=== PATIENT | male | born 1950 | race Caucasian/White ===

== ENCOUNTER 2025-01-19 09:04 | Outpatient (AMB) | payer MEDICARE, SELFPAY ==
--- NOTE | 2025-01-19 09:07 | A.OFFPC_ITS ---
Vital Signs 3 01/19/25 09:20 01/19/25 10:10 Height 5 ft 9 in Weight 268 lb 4 oz BMI 39.6 BP 132/72 Blood Pressure Location Lt brachial Position Sitting Respiration 12 Pulse 44 L 58 Pulse Source Pulse Oximeter Auscultation Temp 96.9 F Temp Source Oral Pulse Oximetry (%) 96 Oxygen Delivery Method Room Air Intake Visit Reasons: Est. Care / Physical Intake Note: New patient to establish care Cranberry Sorter Required: No Allergies No Known Allergies Allergy (Verified 01/19/25 09:39) Medication List - Last Reconciled 01/19/25 by Brina Weaver, COMMERCIAL ACCOUNTANT-BC cetirizine (Zyrtec) 10 mg PO DAILY PRN cyanocobalamin (vitamin B-12) 1,000 mcg PO DAILY metformin ER 500 mg PO DAILY rosuvastatin 20 mg PO BEDTIME valsartan 160 mg PO DAILY Tobacco use date assessed: 01/19/25 Fall risk assessment: No Falls in past year Last assessed Fall Risk: 01/19/25 Dental Screening Dental Screen Date: 01/19/25 Did you have a dental visit in the last 12 months?: No Did you have a dental problem in the last 6 months where you did not have access to dental care?: No Was dental information given to patient?: Patient has dentist HPI HPI Comments 2 History of Present Illness0 Details 74 y/o M with obesity, deviated nasal se ptum, elevated LFT, GERD, HLD, HTN, melanoma, prediabetes, family hx colon ca (Mom), leukocytosis, macrocytosis, sebhorreic dermatitis of scalp, PVC and PAC noted on EKGs SurgHx: s/p cataract surgery 2020, nasal deviation repair 2019 FHx: Mom colon ca, Bro oropharynx ca & [place], MGF stroke 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 New scabbed and bleeding area on back. - Previous basal cell carcinoma treated with excisions on the back. - Hypertension at goal on valsartan. - Prediabetes a1 c 5.3% on Metformin Intentional wt loss. - Hyperlipidemia on statin, due for labs . - Sustained Vitamin B12 supplementation has been prescribed for deficiency. Due for Tdap, willing to get today. Exam: awake alert NAD Irregular, bradycardic LS CTAB No edema ble, + pp, decreased Mood and affect appropriate Posterior trunk Anterior L chest Discussion We discussed the importance of regular follow-up to monitor existing conditions, particularly melanoma and basal cell carcinoma due to the risk of recurrence. I emphasized the importance of obtaining labs before the next appointment to assess blood counts and lipid levels. We reviewed the need for pneumococcal and Tdap vaccinations due to age and medical history, duly noting that the Tdap would be administered today, with consent obtained. The patient was encouraged to contact the splunk developer for any new or changing lesions. Follow-up was planned for a physical exam in a few weeks to discuss lab outcomes and develop a comprehensive care plan. Anticipatory guidance provided regarding pneumonia and protecting against recurrence of melanoma by minimizing sun exposure. A&P: 1. Melanoma and Basal Cell Carcinoma: Re commended continued vigilance with new skin lesions. Urged follow-up with dermatology for current concerns; continue regular dermatological evaluations. Will have note with pics faxed to [facility] to coordinate care. 2. Essential Hypertension: Blood pressur e under control. Maintain current therapy and monitor at regular appointments. 3. Prediabetes: Excellent glycemic contr ol on Metformin; continue current management and regular monitoring. 4. Hyperlipidemia: Pending lab results f rom today's visit; reinforce lipid- lowering strategies through medication and lifestyle. 5. Vitamin B12 Deficiency: Continue supp lementation; recheck levels with upcoming lab work. 6. Preventative Health: Administer Tdap vaccine today; pursue pneumococcal vaccination at nearby pharmacy. Otherwise UTD on vaccines RTO 2-3 weeks for sAWV and lab fu, sooner PRN Patient was informed and verbally consented to the use of an ambient scribe for clinic note documentation during this visit. Total time spent caring for the patient today was 42 minutes. This includes time spent before the visit reviewing the chart, time spent during the visit, and time spent after the visit on documentation, reviewing laboratory results, diagnostic imaging, medications, performing a medically necessary evaluation, counseling on diagnoses, care coordination, ordering appropriate tests, ordering appropriate medications, review of tests performed by other providers, reporting test results with the patient, communication with other healthcare providers. [facility] Medical History (Updated 01/19/25 @ 10:[address] [facility]) High cholesterol HTN (hypertension) No pertinent family history Sinusitis Surgical History (Updated 01/19/25 @ 09:27 by Taz Truong MA) No pertinent past surgical history Social History (Updated 01/19/25 @ 09:18 by Taz Truong MA) Household Members: Spouse Both parents involved: No Caregiver staying overnight: No Housing: Condominium Are you a primary animal care assistant to a significant other at home: Yes Do you presently have visiting nurse or other home services: No 75 years or older and lives alone: No Alcohol intake: current Alcohol intake frequency: a few times a week Patient Tobacco Use Status: Former Tobacco user Tobacco use type: Cigarette Cigarette Packs Per Day: 2 Years Smoked: 10 e-Cigarette/Vaping Use: Never Used Second Hand Smoke Exposure: No service: No Current occupational status: retired Cognitive needs: No Hearing needs: No Vision needs: No Questionnaire PHQ-9 Over the last 2 weeks, how often have you been bothered by any of the following problems? 1. Little interest or pleasure in doing things: not at all 2. Feeling down, depressed, or hopeless: not at all 3. Trouble falling or staying asleep, or sleeping too much: not at all 4. Feeling tired or having little energy: not at all 5. Poor appetite or overeating: not at all 6. Feeling bad about yourself - or that you are a failure or have let yourself or your family down: not at all 7. Trouble concentrating on things, such as reading the newspaper or watching television: not at all 8. Moving or speaking so slowly that other people could have noticed. Or the opposite - being so fidgety or restless that you have been moving around a lot more than usual: not at all 9. Thoughts that you would be better off or of hurting yourself in some way: not at all Total score: 0 Depression Screening Interpretation: Negative Depression Screening Done: Yes 71715 - PHQ-9 Billing: Yes Source: Developed by Drs. Deangelo Serna, Adenike Ashby, Wali Rascon and colleagues, with an educational linn from [employer]. Thrive Questionnaire Date Thrive assessed: 01/19/25 I am a: Patient What is your living situation today?: I have a steady place to live Within the past 12 months, did the food you bought not last and you didn't have the money to get more?: I choose not to answer this question Within the past 12 months, did you worry whether your food would run out before you got money to buy more?: I choose not to answer this question Do you have trouble paying for medicines?: No Do you have trouble getting transportation to medical appointments?: No Do you have trouble paying your heating and electricity bill?: No Do you have trouble taking care of your child, family member or friend?: No Do you have trouble with day-to-day activities such as bathing, preparing meals, shopping, managing finances, etc.?: No Are you currently unemployed and looking for a job?: No Are you interested in more education?: No Please select the resources that you would like help with: None Currently or been in a relationship where the following occur: No concerns reported THRIVE Score: 0 AUDIT C Alcohol Use Questionnaire (AUDIT-C) 1. How often do you have a drink containing alcohol?: 4 or more times a week 2. How many drinks containing alcohol do you have on a typical day when you are drinking?: 5 or 6 3. How often do you have six or more drinks on one occasion?: Monthly Total Score: 8 Score Reviewed/Action Taken: Yes SHANAE-7 AMB Questionnaire SHANAE-7 Date SHANAE - 7 assessed: 01/19/25 Feeling nervous, anxious, or on edge: 0 = Not at all Not being able to stop or control worryin = Not at all Worrying too much about different things: 0 = Not at all Trouble relaxin = Not at all Being so restless that it is hard to sit still: 0 = Not at all Becoming easily annoyed or irritable: 0 = Not at all Feeling afraid as if something awful might happen: 0 = Not at all Total SHANAE-7 score (0-4 normal; 5-9 mild; 10-14 moderate; 15-21 severe): 0 Source: Developed by Drs. Deangelo Serna, Adenike Ashby, Wali Rascon and colleagues, with an educational linn from [employer]. SHANAE-7 Assessment Billing SHANAE-7 Assessment Tool: SHANAE-7 Assessment 69014 Physical exam (Primary Care) Vital Signs: Last Vital Signs Temp 96.9 F 01/19/25 09:20 Pulse 44 L 01/19/25 09:20 Resp 12 01/19/25 09:20 BP 132/72 01/19/25 09:20 Pulse Ox 96 01/19/25 09:20 Oxygen Delivery Method Room Air 01/19/25 09:20 BMI result Body Mass Index 39.6 BMI Assessment/Plan discussion: High Tobacco/Smoking Status: Tobacco use Status Tobacco use date assessed 01/19/25 01/19/25 09:19 Patient Tobacco Use Status Former Tobacco user 01/19/25 09:19 Tobacco use type Cigarette 01/19/25 09:19 e-Cigarette/Vaping Use Never Used 01/19/25 09:19 PHQ-9: PHQ-9 Score PHQ-9: Total score 0 01/19/25 09:52 Depression Screening Interpretation: Negative Thrive Assessment: Date of Thrive Assessment Date Thrive assessed 01/19/25 01/19/25 09:12 Currently or been in a relationship where the following occur: No concerns reported Results AMB Hemoglobin A1c 2 AMB Hemoglobin A1c 5.3 % Last Edit by Taz Truong MA on 01/19/25 09:41 Immunizations Boostrix Tdap 2.5 Lf unit-8 mcg-5 Lf/0.5 mL intramuscular syringe Performing Provider[facility] Performing Location: [facility] Administered by: Mehnaz Herring RN on 01/19/25 10:06 2 Dose Route Admin Location Dispensed Lot Number Expiration Date [facility] Hot Roll Inspector 0.5 mL IM Right Deltoid 0.5 mL [id number] 08/24/25 [id number] Usetrace 2 VIS Given Date VIS Provided VIS Publication Date 01/19/25 Single Vaccine 21 Eligibility Eligibility Date Funding Source Not [facility] Eligible 01/19/25 Private Results Reviewed Results Reviewed: Laboratory Last Values Hgb A1c (Clinic) 5.3 % (4.0-6.0) 01/19/25 09:38 Coding Level of Care Code New Pt Level 4 (57920) Complex EM visit Add On G2211 Diagnoses Encounter to establish care Z76.89 Primary hypertension I10 Hypertension type: primary hypertension Mixed hyperlipidemia E78.2 Hyperlipidemia type: mixed hyperlipidemia Malignant melanoma of torso excluding breast C43.59 Melanoma location: torso excluding breast Need for Tdap vaccination Z23 BMI 39.0-39.9,adult Z68.39 Obesity (BMI 30-39.9) E66.9 Seasonal allergies J30.2 Prediabetes R73.03 Basal cell carcinoma (BCC) of skin of other part of torso C44.519 Basal cell carcinoma location: other part of trunk Additional Codes SHANAE-7 Assessment Billing - SHANAE-7 Assessment Tool: SHANAE-7 Assessment 29699 ([id number]) PHQ-9 - 72130 - PHQ-9 Billing: Yes ([id number]) Assessment & Plan Assessment & Plan (1) Encounter to establish care: Code(s): Z76.89 - Persons encountering health services in other specified circumstances (2) HTN (hypertension): Code(s): I10 - Essential (primary) hypertension Category: Medical Qualifiers: Hypertension type: primary hypertension Qualified Code(s): I10 - Essential (primary) hypertension (3) HLD (hyperlipidemia): Code(s): E78.5 - Hyperlipidemia, unspecified Category: Medical Qualifiers: Hyperlipidemia type: mixed hyperlipidemia Qualified Code(s): E78.2 - Mixed hyperlipidemia (4) Melanoma: Comment: [facility] Code(s): C43.9 - Malignant melanoma of skin, unspecified Category: Medical Qualifiers: Melanoma location: torso excluding breast Qualified Code(s): C43.59 - Malignant melanoma of other part of trunk (5) Need for Tdap vaccination: Code(s): Z23 - Encounter for immunization Category: Medical (6) BMI 39.0-39.9,adult: Code(s): Z68.39 - Body mass index [BMI] 39.0-39.9, adult Category: Medical (7) Obesity (BMI 30-39.9): Comment: with HTN and HLD Code(s): E66.9 - Obesity, unspecified Category: Medical (8) Seasonal allergies: Code(s): J30.2 - Other seasonal allergic rhinitis Category: Medical (9) Prediabetes: Code(s): R73.03 - Prediabetes Category: Medical (10) Basal cell carcinoma of skin: Code(s): C44.91 - Basal cell carcinoma of skin, unspecified Category: Medical Qualifiers: Basal cell carcinoma location: other part of trunk Qualified Code(s): C 44.519 - Basal cell carcinoma of skin of other part of trunk Plan . Orders: Orders 2 AMB Hemoglobin A1c Today Z13.9 - Encounter for screening, unspecified Lipid Panel Today C43.9 - Malignant melanoma of skin, unspecified, E78.5 - Hyperlipidemia, unspecified, I10 - Essential (primary) hypertension Vitamin D 25-OH Total Today C43.9 - Malignant melanoma of skin, unspecified, E78.5 - Hyperlipidemia, unspecified, I10 - Essential (primary) hypertension Complete Blood Count no Diff Today C43.9 - Malignant melanoma of skin, unspecified, E78.5 - Hyperlipidemia, unspecified, I10 - Essential (primary) hypertension Comprehensive Met. Panel Today C43.9 - Malignant melanoma of skin, unspecified, E78.5 - Hyperlipidemia, unspecified, I10 - Essential (primary) hypertension Microalbumin, Random (w Creat) Today C43.9 - Malignant melanoma of skin, unspecified, E78.5 - Hyperlipidemia, unspecified, I10 - Essential (primary) hypertension PSA, Ultra Sensitive Today C43.9 - Malignant melanoma of skin, unspecified, E78.5 - Hyperlipidemia, unspecified, I10 - Essential (primary) hypertension TSH reflex Free T4 Today C43.9 - Malignant melanoma of skin, unspecified, E78.5 - Hyperlipidemia, unspecified, I10 - Essential (primary) hypertension Vitamin B12 and Folate Today C43.9 - Malignant melanoma of skin, unspecified, E78.5 - Hyperlipidemia, unspecified, I10 - Essential (primary) hypertension TDaP Immunization Today Z23 - Encounter for immunization Medications: New 2 cyanocobalamin (vitamin B-12) 1,000 mcg PO DAILY 90 tabs 0RF metformin ER 500 mg PO DAILY 90 tabs 0RF rosuvastatin 20 mg PO BEDTIME 90 tabs 0RF valsartan 160 mg PO DAILY 90 tabs 0RF Boostrix Tdap (diphth,pertus(acell),tetanus) 0.5 mL IM ONCE 0.5 mL 0RF NS Z23 - Encounter for immunization Patient Instructions: - Schedule dermatology follow-up for evaluation of any concerning skin lesions. - Adhere to current medication regimen for blood pressure, diabetes, and cholesterol. - Obtain pneumococcal vaccine at a local pharmacy. - Minimize sun exposure to prevent skin damage and recurrence of melanoma. - Return for a follow-up physical exam and lab review in a few weeks. Walk-In Care (Urgent Care): We Make it Easy Walk-in for urgent medical issues such as: ? Seasonal Allergies ? Insect Bites ? Cough ? Diarrhea ? Acute Asthma Attacks ? Back, Knee or Joint Pain ? Ear Infection ? Fever without a Rash ? Headaches ? Nausea ? [place] Eye, Rash or Skin Irritation ? Sore Throat ? Sports Physicals ? Vomiting Most insurances are accepted. Patients do not need to be part of the [facility] to seek care at the walk-in clinic. Locations [address] [place] [address] , [place] [address] ? [phone] [facility] in [place] provides services to ages 18 and over. Open Saturday-Saturday: 8 a.m. to 5 p.m. and Saturday: 9 a.m. to 3 p.m.* *Hours may vary due to staffing availability. To confirm Walk-In Care hours in [place], please call [phone]. [address] [place] [address] ? [phone] [facility] in [place] provides services to ages 12 and over. Open Saturday-Saturday: 8 a.m. to 5 p.m. Hours may vary due to staffing availability. To confirm Walk-In Care hours in [place], please call [phone]. LABORATORY SERVICES: [facility] Lab ? Primary Location [address] [place] [address] Saturday through Saturday 6:00 AM ? 5:00 PM Saturday 7:00 AM ? 11:00 AM* [phone] The [facility] Lab is centrally located near the front entrance of the [facility] for easy outpatient access. Convenient parking is provided for outpatients. *Hours may vary due to staffing availability. To confirm Laboratory hours for any location, please call [phone]. Offsite Location For your convenience, we offer offsite laboratory draw stations at the following locations: [address] [facility], [place] [address] [facility], [address], [place] Saturday through Saturday 7:30 AM ? 1:00 PM* [phone] *Hours may vary due to staffing availability. To confirm Laboratory hours for any location, please call [phone]. [place] ? [address] [facility], [place] Saturday through Saturday 6:00 AM ? 3:30 PM* Saturday 6:30 AM ? 3 PM* [phone] *Hours may vary due to staffing availability. To confirm Laboratory hours for any location, please call [phone]. [address] [facility] Saturday through Saturday 7:30 AM ? 4:00 PM* [phone] *Hours may vary due to staffing availability. To confirm Laboratory hours for any location, please call [phone] [place] [address] Saturday through 9:00 AM ? 4:00 PM* *Hours may vary due to staffing availability. To confirm Laboratory hours for any location, please call [phone]. Appointments are not necessary. Walk-ins are welcome. Like all the departments throughout the [facility], our Lab undergoes frequent reviews to ensure the quality and accuracy of test results, and our staff takes special pride in its status as a nationally accredited facility. Patient Portal: ONE PATIENT. ONE RECORD. BETTER CARE. [facility] has a fully integrated, cutting- edge mobile electronic health information system that has revolutionized the way we care for our patients and manage our organization. This system improves communication and coordination enabling us to provide safe, higher-quality care, and an overall positive experience for staff and patients. Our first priority, as always, is to deliver the highest quality care possible. The system is running in the background supporting that priority. This portal is for all [facility] services and practices. If you are experiencing any technical difficulties with enrolling or logging into the Patient Portal please complete the [facility] Patient Portal Technical Support Form. [facility] now offers a new secure on-line interactive tool for patients to review their health information ? ?Patient Portal. This interactive web portal will enable patients and their families to take an active role in their care by providing easy, secure access to their health information via the internet. The Patient Portal provides patients with instant access to their health information, including laboratory results, medications, allergies, demographic information, visit history, and more. In addition to managing their own care, parents and health care proxies with authorized consent will appreciate the ability to access the records of those individuals for whom they provide care. Please note: if you wish to gain access (Proxy) to another patient?s portal, you will be required to come to the Medical Records Department in person at [facility]. Both the patient giving proxy access and the proxy will need to provide photo identification and complete the appropriate authorization. The Patient Portal also allows track their appointments online. The [facility] Patient Portal also saves patients time by allowing them to submit updates to their demographic and contact information prior to their visits. Portal email notifications will also alert patients to any new activity on their portal, such as test results and new appointments. In order to initially enroll in the [facility] Patient Portal, you will need to enter some required information including the following: * your [facility] Medical Record number * your personal home email address * name * date of Please note: In order to enroll in the [facility] Patient Portal, we need to have your email address on file in your electronic medical record. ?The email address needs to be specific for one person (yourself) in order for your Portal enrollment to be successful. ?You can update your email address in person with our Registration staff when you are registering for a hospital visit. ?Otherwise, you will need to come to the Health Information Management (Medical Records) Department at [facility]. ?We are open from Saturday ? Saturday from 7:30 a.m. ? 4:30 p.m. ?You will be required to present a photo id. Once you have successfully enrolled in the Patient Portal, you will receive a one-time user id and password for the Portal, sent to your email address. ?This will allow you to log into the Patient Portal within 99 hrs and reset your own logon id and password, and define personal security questions. ?Once your permanent login and password have been set, you can log into the [facility] Patient Portal at any time via the blue button above or from the Portal Logon button on any page of the [facility] website. [facility] encourage all of our patients to enroll in Patient Portal as it presents a valuable opportunity for patients and their families to actively participate in their care and stay healthy Welcome to [facility]. ?We look forward to working with you.
[2025-01-19 09:20] VITALS: BP 132/72; PULSE 44; RESP 12; TEMP 36.1; O2SAT 96; BMI 39.6
[2025-01-19 10:10] VITALS: PULSE 58
== END 2025-01-19 10:06 | disposition home or self-care (01) ==
LOC: HO.HMCFM 09:05
PROVIDERS: PCP Nurse Practitioner Family; Visit Provider Nurse Practitioner Family
DX: Z76.89 Persons encountering health services in other specified circumstances (principal); I10 Essential (primary) hypertension; E78.2 Mixed hyperlipidemia; C43.59 Malignant melanoma of other part of trunk; Z23 Encounter for immunization; Z68.39 Body mass index [BMI] 39.0-39.9, adult; E66.9 Obesity, unspecified; J30.2 Other seasonal allergic rhinitis; R73.03 Prediabetes; C44.519 Basal cell carcinoma of skin of other part of trunk; Z13.9 Encounter for screening, unspecified

== ENCOUNTER 2025-01-19 10:17 | Outpatient (REF) | payer MEDICARE, SELFPAY ==
[2025-01-19 14:25] LABS: Hematocrit 41.2 % (42.0-52.0); Hemoglobin 14.2 g/dl (14.0-18.0); Mean Corpuscular HGB Conc 34.5 g/dl (31.0-36.0); Mean Corpuscular Hemoglobin 33.9 pg (27.0-33.0); Mean Corpuscular Volume 98.3 fL (80.0-98.0); Mean Platelet Volume 11.2 fL (9.4-12.4); Platelet Count 199 X10*3/uL (160-400); Red Blood Count 4.19 X10*6/uL (4.60-5.80); Red Cell Distribution Width 13.8 % (11.0-16.0); White Blood Count 7.6 X10*3/uL (4.8-10.8)
[2025-01-19 14:48] LABS: Alanine Aminotransferase 23 U/L (0-40); Albumin Level 4.2 g/dL (3.5-5.0); Alkaline Phosphatase 55 U/L (39-117); Anion Gap 11 (12-20); Aspartate Amino Transferase 30 U/L (5-37); Bilirubin Total 0.8 mg/dL (0.0-1.0); Blood Urea Nitrogen 15 mg/dL (9-16); Calcium 9.4 mg/dL (8.4-10.2); Carbon Dioxide 26 mmol/L (22-29); Chloride 106 mmol/L (96-108); Cholesterol 138 mg/dL (<200); Estimated Glomerular Filt Rate > 60; Glucose Random 95 mg/dL (60-115); HDL Cholesterol 41 mg/dL (>40); LDL Cholesterol Calculated 73 mg/dL (<100); Potassium 4.1 mmol/L (3.3-5.1); Sodium 139 mmol/L (135-145); Total Protein 6.9 g/dL (6.5-8.0); Triglycerides 122 mg/dL (<150)
[2025-01-19 15:05] LABS: TSH reflex Free T4 2.73 uIU/mL (0.32-4.0)
[2025-01-19 15:08] LABS: Creatinine Urine 213.11 mg/dL; Microalbum/Creatinine Ratio Ur 4.6 ug/mg cr (<30)
[2025-01-19 15:15] LABS: Vitamin B12 972 pg/mL (200-900)
[2025-01-24 16:29] LABS: PSA, Ultra Sensitive 0.98 ng/mL
== END 2025-01-19 10:18 | disposition home or self-care (01) ==
LOC: HO.WFDLDS 10:17
PROVIDERS: Visit Provider Nurse Practitioner Family
DX: C43.9 Malignant melanoma of skin, unspecified (principal); E78.5 Hyperlipidemia, unspecified; I10 Essential (primary) hypertension; Z23 Encounter for immunization; Z13.9 Encounter for screening, unspecified; Z12.5 Encounter for screening for malignant neoplasm of prostate; Z13.1 Encounter for screening for diabetes mellitus
CPT/HCPCS: 36415; 80053; 80061; 82043; 82306; 82570; 82607; 82746; 83036; 84153; 84443; 85027; 90471; 90715; 96127; 99202

== ENCOUNTER 2025-02-10 07:29 | Outpatient (AMB) | payer MEDICARE, SELFPAY ==
--- NOTE | 2025-02-10 07:36 | A.OFFVIS_ITS ---
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 The Medicare Annual Wellness Visit (AWV) is a yearly appointment with a health professional to identify health risks and help reduce them and to create or update a personalized prevention plan. During a Medicare AWV, health professionals should also review any current opioid prescriptions, detect any cognitive impairment, and establish or update medical and family history. 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 Colon: 2023 @ [facility], polyps repeat in 3 years Vaccines: Flu UTD, Tdap 12/2024, Shingles UTD, PCV to be done at pharmacy AAA screen: NA EKG: done today, PVC and PAC 1st degree heart block [place] of Care: GI [facility] next visit March 2025 [place] [facility] Visual Acuity: reading glasses; vision screen done today Hearing Screening: has not had it checked in a while, wouldnt mind getting audio testing ACP: has HCP at home, and dtr, has living will ok to resus but does not want prolonged life sustaining efforts Dietary/Nutrition/Exercise Edu provided: Y Results Labs 01/19/25 Mild anemia , Vit D 26, otherwise labs wnl PSA WNL During the course of the visit the patient was educated and counseled about appropriate screening and preventative services. Patient instructions were provided to the patient in written or electronic format. I have reviewed and verified the above information. Since last office visit: Did see derm since last visit and plans to have the areas below removed. Taking all meds as directed. Offers no new complaints. LDL at goal on statin. B12 normal on supplement BP WNL on meds A1c stable on Metformin Exam: General: Well developed, well nourished, in no acute distress. Appears stated age. Head: Normocephalic, atraumatic. Eyes: Pupils are equal, round and reactive to light and accommodation. Conjunctivae are clear. Vision grossly normal. Ears: TMs clear AU, EACS WNL Nose: Patent, without discharge. Mouth: There are no ulcers or lesions noted. No inflammation, no post nasal drip, no plaques nor exudates. Neck: Supple, no adenopathy or thyromegaly. Lungs: Clear to auscultation bilaterally. No rales, rhonchi or wheeze noted. Good air flow in all castrejno. Heart: Irregular, bradycardic, No murmurs, click, rubs or gallops are noted. Abdomen: Bowel sounds present in all quadrants. The abdomen is soft, nontender, with no masses or organomegaly noted. No hernias are noted. Musculoskeletal: Joints are nontender, without swelling, redness, or effusions. Range of motion is observed to be normal. Pulses: Peripheral pulses are equal and palpable bilaterally - decreased Extremities: No edema ble, + pp, decreased, hairless, + spider veins Neurologic: Gait and station normal. Cranial Nerves 2-12 intact. Motor strength grossly symmetrical and intact. No sensory loss. Balance normal. Skin: See below. Psych: Normal eye contact, affect and mood appropriate, and normal interactions. Patient is alert and appropriate to context. Posterior trunk Anterior L chest A&P: 1. Melanoma and Basal Cell Carcinoma: Re commended continued vigilance with new skin lesions. Urged follow-up with dermatology for current concerns; continue regular dermatological evaluations 2. Essential Hypertension: Blood pressur e under control. Maintain current therapy and monitor at regular appointments. 3. Prediabetes: Excellent glycemic contr ol on Metformin; continue current management and regular monitoring. 4. Hyperlipidemia: Pending lab results f rom today's visit; reinforce lipid- lowering strategies through medication and lifestyle. 5. Vitamin B12 Deficiency: Continue supp lementation; recheck levels with upcoming lab work. 6. Preventative Health: pursue pneumococ joselito vaccination at nearby pharmacy. Otherwise UTD on vaccines 7. Vit D def: start MVI OTC (mens 50+) Plan RTO 6 months with repeat labs 1 week before for routine chronic dz mgmt, sooner PRN An additional 30 minutes was spent addressing the problem(s) noted at todays visit. This includes time spent before the visit reviewing the chart, time spent during the visit, and time spent after the visit on documentation reviewing laboratory results, diagnostic imaging, medications, performing a medically necessary evaluation, counseling on diagnoses, care coordination, ordering appropriate tests, ordering appropriate medications, review of tests performed by other providers, reporting test results with the patient, communication with other healthcare providers. 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 healthcare to a significant other at home: Yes Do you presently have visiting nurse or other home services: No 75 years or older and lives alone: No Alcohol intake: current Alcohol intake frequency: a few times a week Patient Tobacco Use Status: Former Tobacco user Tobacco use type: Cigarette Cigarette Packs Per Day: 2 Years Smoked: 10 e-Cigarette/Vaping Use: Never Used Second Hand Smoke Exposure: No service: No Current occupational status: retired Cognitive needs: No Hearing needs: No Vision needs: No Questionnaire Medicare Wellness Checkup What [age] your [age]?: [age] What gender do you identify with?: male During the past 4 weeks, how much have you been bothered by emotional problems such as feeling anxious, depressed, irritable, sad or downhearted, and blue?: n ot at all During the past 4 weeks, has your physical & emotional health limited your social activities with family, friends, neighbors, or groups?: not at all During the past 4 weeks, how much bodily pain have you generally had?: very mild pain During the past 4 weeks, was someone available to help you if you needed & wanted help?: yes, as much as I wanted During the past 4 weeks, what was the hardest physical activity you could do for at least 2 minutes?: heavy Can you get to places out of walking distance without help? (For eg., can you travel alone on buses, taxis or drive your car?): Yes Can you go shopping for groceries or clothes without someone's help?: Yes Can you prepare your own meals?: Yes Can you do your housework without help?: Yes Because of any health problems, do you need the help of another person with your personal care needs such as eating, bathing, dressing or getting around the house?: No Can you handle your own money without help?: Yes During the past 4 weeks, how would you rate your health in general?: good During the past 4 weeks how have things been going for you?: pretty well Are you having difficulties driving your car?: no Do you always fasten your seat belt when you are in a car?: yes, usually During past 4 weeks, have you been bothered by the following: never: Falling or dizzy when standing up, Sexual problems?, Trouble eating well?, Teeth or denture problems?, Problems using the telephone? and Tiredness or fatigue? Have you fallen 2 or more times in the past year?: No Are you afraid of falling?: No Are you a smoker?: no During the past 4 weeks, how many drinks of wine, beer, or other alcoholic beverages did you have?: 2-5 drinks per week Do you exercise for about 20 minutes 3 or more times a week?: no, I usually do not exercise this much Have you been given information to help with the following?: no: Hazards in your house that might hurt you? and no: Keeping track of your medications? How often do you have trouble taking medicines the way you have been told to take them?: I always take medicine as prescribed How confident are you that you can control & manage most of your health problems?: very confident What is your race?: White Activity of Daily Living Bathing - sponge bath, tub bath or shower: receives no assistance (gets in/out by self, if usual bathing means Dressing - getting clothes from closets & drawers, including inner/outer garments & fasteners.: gets clothes & gets completely dressed without help Toileting - going to the 'toilet room' for urine/bowel elimination & cleaning self/arranging clothes: goes to toilet room, cleans self, arranges clothes without help Transfer: moves in & out of bed and chair without help (may use support object) Continence: controls urination/bowel movements completely by self Feeding: feeds self without help Total Score: 0 Information obtained from: patient Using telephone: independent Traveling: independent Shopping: independent Preparing meals: independent Housework: independent Taking medicine: independent Managing money: independent PHQ-9 Over the last 2 weeks, how often have you been bothered by any of the following problems? 1. Little interest or pleasure in doing things: not at all 2. Feeling down, depressed, or hopeless: not at all 3. Trouble falling or staying asleep, or sleeping too much: not at all 4. Feeling tired or having little energy: not at all 5. Poor appetite or overeating: not at all 6. Feeling bad about yourself - or that you are a failure or have let yourself or your family down: not at all 7. Trouble concentrating on things, such as reading the newspaper or watching television: not at all 8. Moving or speaking so slowly that other people could have noticed. Or the opposite - being so fidgety or restless that you have been moving around a lot more than usual: not at all 9. Thoughts that you would be better off or of hurting yourself in some way: not at all Total score: 0 Depression Screening Interpretation: Negative Depression Screening Done: Yes 60304 - PHQ-9 Billing: Yes Source: Developed by Drs. Deangelo Serna, Adenike Ashby, Wali Rascon and colleagues, with an educational linn from [employer]. Physical Exam Vital Signs: Last Vital Signs Temp 97.5 F 04/16/25 08:05 Pulse 69 02/10/25 08:05 Resp 12 02/10/25 08:05 BP 124/72 02/10/25 08:05 Pulse Ox 97 02/10/25 08:05 Oxygen Delivery Method Room Air 02/10/25 08:05 BMI result Body Mass Index 39.6 Office Procedures EKG [id number], Complete Vision Screening Right Eye: 20/20 Left Eye: 20/25 Bilateral: 20/25 Color: Pass 75970 - Vision Screening Assessment & Plan Assessment & Plan (1) Encounter for subsequent annual wellness visit (AWV) in Medicare patient: Onset Date: ~01/2025 Code(s): Z00.00 - Encounter for general adult medical examination without abnormal findings (2) ACP (advance care planning): Code(s): Z71.89 - Other specified counseling (3) Vitamin D deficiency: Comment: start daily MVI Code(s): E55.9 - Vitamin D deficiency, unspecified (4) HTN (hypertension): Code(s): I10 - Essential (primary) hypertension Qualifiers: Hypertension type: primary hypertension Qualified Code(s): I10 - Essential (primary) hypertension (5) HLD (hyperlipidemia): Code(s): E78.5 - Hyperlipidemia, unspecified Qualifiers: Hyperlipidemia type: mixed hyperlipidemia Qualified Code(s): E78.2 - Mixed hyperlipidemia (6) Obesity (BMI 30-39.9): Comment: with HTN and HLD Code(s): E66.9 - Obesity, unspecified (7) Prediabetes: Code(s): R73.03 - Prediabetes (8) B12 deficiency anemia: Code(s): D51.9 - Vitamin B12 deficiency anemia, unspecified Qualifiers: Vitamin B12 deficiency anemia type: other B12 deficiency Qualified Code(s): D51.8 - Other vitamin B12 deficiency anemias Plan . Orders: Orders 2 Complete Blood Count no Diff 6 Months D51.9 - Vitamin B12 deficiency anemia, unspecified, E66.9 - Obesity, unspecified, E78.2 - Mixed hyperlipidemia, I10 - Essential (primary) hypertension, R73.03 - Prediabetes Comprehensive Met. Panel 6 Months D51.9 - Vitamin B12 deficiency anemia, unspecified, E66.9 - Obesity, unspecified, E78.2 - Mixed hyperlipidemia, I10 - Essential (primary) hypertension, R73.03 - Prediabetes IRON PROFILE 6 Months D51.9 - Vitamin B12 deficiency anemia, unspecified, E66.9 - Obesity, unspecified, E78.2 - Mixed hyperlipidemia, I10 - Essential (primary) hypertension, R73.03 - Prediabetes Vitamin B12 and Folate 6 Months D51.9 - Vitamin B12 deficiency anemia, unspecified, E66.9 - Obesity, unspecified, E78.2 - Mixed hyperlipidemia, I10 - Essential (primary) hypertension, R73.03 - Prediabetes Vitamin D 25-OH Total 6 Months D51.9 - Vitamin B12 deficiency anemia, unspecified, E66.9 - Obesity, unspecified, E78.2 - Mixed hyperlipidemia, I10 - Essential (primary) hypertension, R73.03 - Prediabetes Hemoglobin A1c 6 Months D51.9 - Vitamin B12 deficiency anemia, unspecified, E66.9 - Obesity, unspecified, E78.2 - Mixed hyperlipidemia, I10 - Essential (primary) hypertension, R73.03 - Prediabetes Lipid Panel 6 Months D51.9 - Vitamin B12 deficiency anemia, unspecified, E66.9 - Obesity, unspecified, E78.2 - Mixed hyperlipidemia, I10 - Essential (primary) hypertension, R73.03 - Prediabetes Ferritin 6 Months D51.9 - Vitamin B12 deficiency anemia, unspecified, E66.9 - Obesity, unspecified, E78.2 - Mixed hyperlipidemia, I10 - Essential (primary) hypertension, R73.03 - Prediabetes Referrals 2 Audiology Referral H91.90 - Unspecified hearing loss, unspecified ear Medications: New 2 multivitamin 1 tab PO DAILY 90 tabs 0RF Patient Instructions: Health screenings for men You should visit your health care provider regularly, even if you feel healthy. The purpose of these visits is to: Screen for medical issues Assess your risk for future medical problems Encourage a healthy lifestyle Update vaccinations and other preventive care services Help you get to know your provider in case of an illness Information Even if you feel fine, you should still see your provider for regular checkups. These visits can help you avoid problems in the future. For example, the only way to find out if you have high blood pressure is to have it checked regularly. High blood sugar and high cholesterol level also may not have any symptoms in the early stages. Simple blood tests can check for these conditions. There are specific times when you should see your provider or receive specific health screenings. The [place] Preventive Services Task Force publishes a list of recommended screenings. Below are screening guidelines for men ages 40 to 64. BLOOD PRESSURE SCREENING Have your blood pressure checked at least once every year. Watch for blood pressure screenings in your area. Ask your provider if you can stop in to have your blood pressure checked. Ask your provider if you need your blood pressure checked more often if: You have diabetes, heart disease, kidney problems, or are overweight or have certain other health conditions You have a first-degree relative with high blood pressure You are Black Your blood pressure top number is from 120 to 129 mm Hg, or the bottom number is from 70 to 79 mm Hg If the top number is 130 mm Hg or greater or the bottom number is 80 mm Hg or greater, this is considered stage 1 hypertension. Schedule an appointment with your provider to learn how you can lower your blood pressure. Effects of age on blood pressure CHOLESTEROL SCREENING Cholesterol screening should begin at age 35 for men with no known risk factors for coronary heart disease. Repeat cholesterol screening should take place: Every 5 years for men with normal cholesterol levels More often if changes occur in lifestyle (including weight gain and diet) More often if you have diabetes, heart disease, kidney problems, or certain other conditions COLORECTAL CANCER SCREENING If you are under age 45, talk to your provider about getting screened. You may need to be screened if you have a strong family history of colon cancer or polyps. Screening may also be considered if you have risk factors such as a history of inflammatory bowel disease or polyps. If you are age 45 to 75, you should be screened for colorectal cancer. There are several screening tests available: A stool-based fecal occult blood (gFOBT) or fecal immunochemical test (FIT) every year A stool sDNA test every 1 to 3 years Flexible sigmoidoscopy every 5 years or every 10 years with stool testing FIT done every year CT colonography (virtual colonoscopy) every 5 years Colonoscopy every 10 years You may need a colonoscopy more often if you have risk factors for colorectal cancer, such as: Ulcerative colitis A personal or family history of colorectal cancer A history of growths in your colon called adenomatous polyps DENTAL EXAM Go to the dentist once or twice every year for an exam and cleaning. Your dentist will evaluate if you have a need for more frequent visits. DIABETES SCREENING All adults who do not have risk factors for diabetes should be screened starting at age 35 and repeated every 3 years. If you have other risk factors for diabetes, such as a first degree relative with diabetes, overweight or obesity, high blood pressure, prediabetes, or a history of heart disease, you may be tested more often. If you are overweight and have other risk factors, such as high blood pressure and are planning to become , screening is recommended. EYE EXAM Have an eye exam every 2 to 4 years ages 40 to 54 and every 1 to 3 years ages 55 to 64. Your provider may recommend more frequent eye exams if you have vision problems or glaucoma risk. Have an eye exam that includes an examination of your retina (back of your eye) at least every year if you have diabetes. IMMUNIZATIONS Commonly needed vaccines include: Flu shot: get one every year COVID-19 vaccine: ask your provider what is best for you Tetanus-diphtheria and acellular pertussis (Tdap) vaccine: have as one of your tetanus-diphtheria vaccines if you did not receive it as an adolescent Tetanus-diphtheria: have a booster (or Tdap) every 10 years Varicella vaccine: receive 2 doses if you never had chickenpox or the varicella vaccine and were born in 1979 or after Hepatitis B vaccine: receive 2, 3, or 4 doses, depending on your exact circumstances, if you did not receive these as a child or adolescent, until age 59 Shingles (herpes zoster) vaccine: at or after age 50 Ask your provider if you should receive other immunizations, especially if you have certain medical conditions, such as diabetes or are at increased risk for some diseases such as pneumonia. INFECTIOUS DISEASE SCREENING Screening for hepatitis C: all adults ages 18 to 79 should get a one-time test for hepatitis C. Screening for human immunodeficiency virus (HIV): all people ages 15 to 65 should get a one-time test for HIV. Depending on your lifestyle and medical history, you may need to be screened for infections such as syphilis, chlamydia, and other infections. LUNG CANCER SCREENING You should have an annual screening for lung cancer with low-dose computed tomography (LDCT) if: You are age 50 to 80 years AND You have a 20 pack-year smoking history AND You currently smoke or have quit within the past 15 years OSTEOPOROSIS SCREENING If you are age 50 to 64 and have risk factors for osteoporosis, you should discuss screening with your provider. Risk factors can include long-term steroid use, low body weight, smoking, heavy alcohol use, having a fracture after age 50, or a family history of hip fracture or osteoporosis. Osteoporosis PHYSICAL EXAM All adults should visit their provider from time to time, even if they are healthy. The purpose of these visits is to: Screen for diseases Assess risk of future medical problems Encourage a healthy lifestyle Update vaccinations and other preventive care services Maintain a relationship with a provider in case of an illness Your height, weight, and body mass index (BMI) should be checked at every exam. During your exam, your provider may ask you about: Depression and anxiety Diet and exercise Alcohol and tobacco use Safety, such as use of seat belts and smoke detectors Your medicines and risk for interactions PROSTATE CANCER SCREENING If you're 55 through 69 years old, before having the test, talk to your provider about the pros and cons of having a PSA test. Ask about: Whether screening decreases your chance of dying from prostate cancer. Whether there is any harm from prostate cancer screening, such as side effects from testing or overtreatment of cancer when discovered. Whether you have a higher risk of prostate cancer than others. If you are age 55 or younger, screening is not generally recommended. You should talk with your provider about if you have a higher risk for prostate cancer. Risk factors include: Having a family history of prostate cancer (especially a brother or father) Being If you choose to be tested, the PSA blood test is repeated over time (yearly or less often), though the best frequency is not known. Prostate examinations are no longer routinely done on men with no symptoms. Prostate cancer SKIN EXAM Your provider may check your skin for signs of skin cancer, especially if you're at high risk. People at high risk include those who have had skin cancer before, have close relatives with skin cancer, or have a weakened immune system. TESTICULAR EXAM The [place] Preventive Services Task Force (USPSTF) now recommends against performing testicular self-exams. Doing testicular self-exams has been shown to have little to no benefit. Quality Reporting (2019) Adult ([facility] 138//) Smoking risk assessment performed?: Yes Patient Tobacco Use Status: Former Tobacco user Depression screening performed: Yes Screen Results: Yes Negative screen Systolic BP not done?: No BMI screening not done: No BMI High - Follow Up: Yes High-plan Sexual Activity Screening ([facility] 153) Sexually active?: Yes Immunizations (CMS 147, 117) Annual Influenza Vaccine: Yes Measles Antibody Test: No Mumps Antibody Test: No Rubella Antibody Test: No Varicella Antibody Test: No Anti Hepatitis A IgG Antigen test: No Anti Hepatitis B Virus Surface Ab test: No Fall Risk Screening ([facility] 139) Last assessed Fall Risk: 02/10/25 Fall risk assessment: No Falls in past year Dementia Assessment ([facility] 149) Cognitive assessment recorded: Yes Assessment of cognition with standardized tool: Yes (/ on 6 CIT ) Depression/Bipolar (159/160/161/177) PHQ-9: Total score: 0 Ophthalmol:Cataracts Visual Acuity (133) Visual acuity exam performed: Yes (see results) Coding Level of Care Code Medicare Subsequent (G0439) Est Pt Level 4 (92465) Diagnoses Encounter for subsequent annual wellness visit (AWV) in Medicare patient Z00.00 ACP (advance care planning) Z71.89 Vitamin D deficiency E55.9 Primary hypertension I10 Hypertension type: primary hypertension Mixed hyperlipidemia E78.2 Hyperlipidemia type: mixed hyperlipidemia Obesity (BMI 30-39.9) E66.9 Prediabetes R73.03 Other vitamin B12 deficiency anemia D51.8 Vitamin B12 deficiency anemia type: other B12 deficiency CPT Codes Advance Care Planning - Time spent: 1-15 minutes, not on file ([id number]) EKG - CPT: 30108-Sirpnfjyylaxbfguu, Complete ([id number]) Vision Screening - Vision Screenin - Vision Screening ([id number]) Additional Codes PHQ-9 - 55185 - PHQ-9 Billing: Yes ([id number]) Advance Care Planning Advance Care Planning discussion: Exists, not on file Date of discussion: 02/10/25 Who was present: self Forms completed: Health Care Proxy, MOLST and Living will Time spent: 1-15 minutes, not on file Actual minutes spent: 10
[2025-02-10 08:05] VITALS: BP 124/72; PULSE 69; RESP 12; TEMP 36.4; O2SAT 97; BMI 39.6
== END 2025-02-10 08:48 | disposition home or self-care (01) ==
LOC: HO.HMCFM 07:30
PROVIDERS: PCP Nurse Practitioner Family; Visit Provider Nurse Practitioner Family
DX: Z01.00 Encounter for examination of eyes and vision without abnormal findings (principal); E78.2 Mixed hyperlipidemia; I10 Essential (primary) hypertension; R73.03 Prediabetes; Z71.89 Other specified counseling; E55.9 Vitamin D deficiency, unspecified; E66.9 Obesity, unspecified; D51.8 Other vitamin B12 deficiency anemias; Z00.00 Encounter for general adult medical examination without abnormal findings

== ENCOUNTER → 2025-02-10 07:29 | Outpatient (BNVA) | payer MEDICARE, SELFPAY | PROVIDERS: PCP Nurse Practitioner Family; Visit Provider Nurse Practitioner Family | DX: Z00.00 Encounter for general adult medical examination without abnormal findings (principal); Z71.89 Other specified counseling; E55.9 Vitamin D deficiency, unspecified; I10 Essential (primary) hypertension; E78.2 Mixed hyperlipidemia; E66.9 Obesity, unspecified; R73.03 Prediabetes; D51.8 Other vitamin B12 deficiency anemias; C43.9 Malignant melanoma of skin, unspecified; C44.91 Basal cell carcinoma of skin, unspecified; H91.90 Unspecified hearing loss, unspecified ear | CPT/HCPCS: 93005; 96127; 99212 ==

== ENCOUNTER 2025-08-04 09:22 | Outpatient (REF) | payer MEDICARE, SELFPAY ==
[2025-08-04 11:52] LABS: Hematocrit 39.7 % (42.0-52.0); Hemoglobin 13.5 g/dl (14.0-18.0); Mean Corpuscular HGB Conc 34.0 g/dl (31.0-36.0); Mean Corpuscular Hemoglobin 34.4 pg (27.0-33.0); Mean Corpuscular Volume 101.0 fL (80.0-98.0); NRBC Abs Auto 0.000 X10*3/uL (0.0-0.012); NRBC Pct Auto 0.0 /100WBC (0.0-0.2); Platelet Count 175 X10*3/uL (160-400); Red Blood Count 3.93 X10*6/uL (4.60-5.80); White Blood Count 7.7 X10*3/uL (4.8-10.8)
[2025-08-04 12:07] LABS: Hemoglobin A1C 123.7812 umol/L
[2025-08-04 14:56] LABS: Alanine Aminotransferase 37 U/L (0-40); Albumin Level 4.3 g/dL (3.5-5.0); Alkaline Phosphatase 58 U/L (39-117); Anion Gap 11 (12-20); Aspartate Amino Transferase 34 U/L (5-37); Blood Urea Nitrogen 14 mg/dL (9-16); Calcium 9.3 mg/dL (8.4-10.2); Carbon Dioxide 29 mmol/L (22-29); Chloride 107 mmol/L (96-108); Cholesterol 162 mg/dL (<200); Estimated Glomerular Filt Rate > 60; HDL Cholesterol 39 mg/dL (>40); Iron 92 mcg/dL (45-160); Percent Iron Saturation 35 % (15-50); Potassium 4.5 mmol/L (3.3-5.1); Sodium 142 mmol/L (135-145); Total Iron Binding Capacity 266 mcg/dL (228-428); Total Protein 6.6 g/dL (6.5-8.0); Triglycerides 167 mg/dL (<150); Unsaturated Iron Binding 174 ug/dL
[2025-08-04 15:03] LABS: Ferritin 165 ng/mL (20-250)
[2025-08-04 15:27] LABS: Folate 13.2 ng/mL (> or = 4.0); Vitamin B12 1034 pg/mL (200-900)
== END 2025-08-04 09:23 | disposition home or self-care (01) ==
LOC: HO.WFDLDS 09:22
PROVIDERS: Visit Provider Nurse Practitioner Family
DX: I10 Essential (primary) hypertension (principal); E78.2 Mixed hyperlipidemia; R73.03 Prediabetes; D51.9 Vitamin B12 deficiency anemia, unspecified; E66.9 Obesity, unspecified
CPT/HCPCS: 36415; 80053; 80061; 82306; 82607; 82728; 82746; 83036; 83540; 85027

== ENCOUNTER 2025-08-09 08:34 | Outpatient (AMB) | payer MEDICARE, SELFPAY ==
--- NOTE | 2025-08-09 08:45 | A.OFFPC_ITS ---
Vital Signs 08/09/25 08:53 Height 5 ft 9 in Weight 274 lb BMI 40.5 BP 122/72 Blood Pressure Location Rt brachial Position Sitting Respiration 12 Pulse 76 Pulse Source Pulse Oximeter Temp 97.2 F Temp Source Oral Pulse Oximetry (%) 97 Oxygen Delivery Method Room Air Intake Visit Reasons: 6 months 30 min routine fu, labs 1 week before Intake Note: Routine follow up review labs. Patient c/o left knee px and when worse when walking x 2 months. Patient c/o throat bothering and painfule worse when sleeping. [employer] Manager Required: No Allergies No Known Allergies Allergy (Verified 08/09/25 09:08) Medication List - Last Reconciled 08/09/25 by Brina Weaver, [employer]-BC cetirizine (Zyrtec) 10 mg PO DAILY PRN cyanocobalamin (vitamin B-12) 1,000 mcg PO DAILY metformin ER 500 mg PO DAILY multivitamin 1 tab PO DAILY rosuvastatin 20 mg PO BEDTIME valsartan 160 mg PO DAILY Tobacco use date assessed: 08/09/25 Fall risk assessment: No Falls in past year Last assessed Fall Risk: 08/09/25 Dental Screening Dental Screen Date: 08/09/25 Did you have a dental visit in the last 12 months?: Yes Did you have a dental problem in the last 6 months where you did not have access to dental care?: No Was dental information given to patient?: Patient has dentist HPI HPI Comments History of Present Illness Details 75 y/o M with obesity, deviated nasal se ptum, elevated LFT, GERD, HLD, HTN, melanoma, prediabetes, family hx colon ca (Mom), leukocytosis, macrocytosis, sebhorreic dermatitis of scalp, PVC and PAC noted on EKGs, Vit d def SurgHx: s/p cataract surgery 2020, nasal deviation repair 2019 FHx: Mom colon ca, Bro oropharynx ca & [place], MGF stroke 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 Colon: 2023 @ [facility], polyps repeat in 3 years Vaccines: Flu 08/09/25, Tdap 12/2024, Shingles UTD, PCV to be done at pharmacy AAA screen: NA EKG: PVC and PAC 1st degree heart block [place] of Care: GI Optho [facility] History of Present Illness The patient is a 75 year old male presenting with routine complex disease management. Hyperlipidemia: - Takes rosuvastatin, stable treatment. Essential Hypertension: - Managed with valsartan, stable blood p ressure. Vitamin B12 Anemia: - B12 supplements prescribed, anemia per sists/worsened B12 levels have improved Prediabetes: - Metformin taken regularly, A1c 5.4. History of Skin Cancer: - Continued lesion removal, multiple gary geries. Left Leg Pain: - Pain post-golfing, feels bursting pain , like a pop sensation behind L knee ff'd by a lump on the front of lower leg; then started w/ L knee pain. No home tx. No better or worse since onset about 3 weeks ago Would like an Xray Throat Stricture: hx of barium swallow years ago resulting in balloon dilation of esoph. Has been fine until recently; constant throat clearing, choking/gagging. When he removes his dentures, feels rough sensation on the roof of his mouth Does not go to the dentist as doesnt have any teeth; only dentures. Review of Systems - General: Denies recent significant fat igue or weight changes. - Cardiovascular: Denies chest pain. - Respiratory: Reports occasional coughi ng and choking. - Gastrointestinal: Reports difficulty s wallowing and throat constriction. - Musculoskeletal: Reports left leg pain aggravated by walking. - Dermatological: Reports ongoing skin l esion removals, denies new skin changes. - Hematological: Persistent anemia despi te B12 supplementation. - Neurological: Denies headaches or dizz iness. Exam: General: Well developed, well nourished, in no acute distress. Appears stated age. Head: Normocephalic, atraumatic. Eyes: Pupils are equal, round and reactive to light and accommodation. Conjunctivae are clear. Vision grossly normal. Nose: Patent, without discharge. Mouth: There are no ulcers or lesions noted. No inflammation, no post nasal drip, no plaques nor exudates. Managing secretions; on roof of mouth there is a fine speckled like rash, it is not coarse when i feel it; but the patient rep orts it to feel like sandpaper with his tongue; there is no ulcerations. Neck: Supple, no adenopathy or thyromegaly. Lungs: Clear to auscultation bilaterally. No rales, rhonchi or wheeze noted. Good air flow in all castrejon. Heart: Irregular, bradycardic, No murmurs, click, rubs or gallops are noted. Musculoskeletal: Joints are nontender, without swelling, redness, or effusions. Range of motion is observed to be normal. Pulses: Peripheral pulses are equal and palpable bilaterally - decreased Extremities: No edema ble, + pp, decreased, hairless, + spider veins; FROM L knee c/o pain with WB. Medial left lower leg is a palpable soft round raised area; he reports discomfort with palpation. He c/o tightness in the lateral part of his L foot. Neurologic: Gait and station normal. Cranial Nerves 2-12 intact. Motor strength grossly symmetrical and intact. No sensory loss. Balance normal. Skin: See below. Psych: Normal eye contact, affect and mood appropriate, and normal interac tions. Patient is alert and appropriate to context. Results: Labs 08/04/25 worsening anemia, A1c 5.4, b12 and d now normal ldl 90 Discussion Notes I discussed the patient's ongoing management for hyperlipidemia, hypertension, B12 anemia, and type 2 diabetes. We addressed his concerns regarding persistent anemia despite Vitamin B12 supplementation and I recommended a consult with hematology to further investigate. For his left leg pain, I recommended an ultrasound to rule out any clotting issues and a referral to orthopedics for further evaluation. We discussed his history of throat narrowing and esophageal stenosis, and I recommended a barium swallow test to check for any recurrent issues. We agreed on ordering an x-ray for the left knee and providing details for possible orthopedic referral. We talked about the skin cancer management and recent surgeries. I provided instructions on the follow-up appointments and scheduling logistics. I reviewed the need for a flu shot and the covid vaccination update. Patient was given time to ask questions. All questions were answered to their satisfaction. Assessment and Plan 1. Hyperlipidemia - Continue rosuvastatin. 2. Essential Hypertension - Maintain valsartan treatment. 3. Vitamin B12 Anemia - Hematology consult recommended. 4. PreDM - Continue metformin, A1c stable. 5. Left Leg Pain/Left knee pain - Ultrasound ordered, x-ray knee planned , orthopedic referral. 6. Throat Stricture - Barium swallow test arranged. 7. History of Skin Cancer - Continue dermatologic management. Patient Instructions - Continue all current medications as pr escribed. - Schedule ultrasound for left leg. - Attend the barium swallow test as sche duled. - Visit for x-ray of left knee at any ti mt. - Await call for orthopedic referral and hematology consultation. - Receive flu and COVID vaccinations. - Return for follow-up in 8 weeks or theo ner if issues worsen. Consent Consent was discussed with the patient regarding the recommended diagnostic procedures such as ultrasound and barium swallow test. I explained the purpose and potential findings of these tests. The patient was informed about the benefits and necessity of seeking orthopedic and hematology consultations. Consent was verbally obtained for all planned interventions. Patient was informed and verbally consented to the use of an ambient scribe for clinic note documentation during this visit. Total time spent caring for the patient today was 45 minutes. This includes time spent before the visit reviewing the chart, time spent during the visit, and t gina spent after the visit on documentation, reviewing laboratory results, diagnostic imaging, medications, performing a medically necessary evaluation, counseling on diagnoses, care coordination, ordering appropriate tests, ordering appropriate medications, review of tests performed by other providers, reporting test results with the patient, communication with other healthcare providers. [facility] Medical History (Updated 08/09/25 @ 16:07 by Brina Weaver [employer]-) High cholesterol HTN (hypertension) No pertinent family history Sinusitis Surgical History (Updated 02/10/25 @ 13:23 by Brina Weaver [employer]-ALVIN) History of colonoscopy (~2023) No pertinent past surgical history Social History (Updated 01/19/25 @ 09:18 by Taz Truong MA) Household Members: Spouse Housing: [facility] Are you a primary urgent care physician to a significant other at home: Yes Do you presently have visiting nurse or other home services: No Alcohol intake: current Alcohol intake frequency: a few times a week Patient Tobacco Use Status: Former Tobacco user Tobacco use type: Cigarette Cigarette Packs Per Day: 2 Years Smoked: 10 e-Cigarette/Vaping Use: Never Used Second Hand Smoke Exposure: No service: No Current occupational status: retired Cognitive needs: No Hearing needs: No Vision needs: No Questionnaire Thrive Questionnaire Date Thrive assessed: 01/19/25 I am a: Patient What is your living situation today?: I have a steady place to live Within the past 12 months, did the food you bought not last and you didn't have the money to get more?: I choose not to answer this question Within the past 12 months, did you worry whether your food would run out before you got money to buy more?: I choose not to answer this question Do you have trouble paying for medicines?: No Do you have trouble getting transportation to medical appointments?: No Do you have trouble paying your heating and electricity bill?: No Do you have trouble taking care of your child, family member or friend?: No Do you have trouble with day-to-day activities such as bathing, preparing meals, shopping, managing finances, etc.?: No Are you currently unemployed and looking for a job?: No Are you interested in more education?: No Please select the resources that you would like help with: None Currently or been in a relationship where the following occur: No concerns reported THRIVE Score: 0 SHANAE-7 AMB Questionnaire SHANAE-7 Date SHANAE - 7 assessed: 01/19/25 Source: Developed by Drs. Deangelo Serna, Adenike Ashby, Wali Rascon and colleagues, with an educational linn from [employer]. Physical exam (Primary Care) Vital Signs: Last Vital Signs Temp 97.2 F 08/09/25 08:53 Pulse 76 08/09/25 08:53 Resp 12 08/09/25 08:53 BP 122/72 08/09/25 08:53 Pulse Ox 97 08/09/25 08:53 Oxygen Delivery Method Room Air 08/09/25 08:53 BMI result Body Mass Index 40.5 Tobacco/Smoking Status: Tobacco use Status Tobacco use date assessed 08/09/25 08/09/25 08:48 Patient Tobacco Use Status Former Tobacco user 08/09/25 08:45 Tobacco use type Cigarette 08/09/25 08:45 e-Cigarette/Vaping Use Never Used 08/09/25 08:45 Thrive Assessment: Date of Thrive Assessment Date Thrive assessed 01/19/25 08/09/25 08:45 Currently or been in a relationship where the following occur: No concerns reported Office Procedures Flu Questionnaire Does the patient have a severe egg allergy?: No Does the patient have severe life threatening allergies?: No Does the patient have a fever or illness today?: No Has the patient ever had Guillain-[place] Syndrome?: No Has the patient ever had any past reaction to a flu shot?: No Immunizations Fluarix [id number] (PF) 45 mcg (15 mcg x 3)/0.5 mL IM syringe Performing Provider: ALMAZ To Performing Location: [facility] [facility] Administered by: Taz Truong MA on 08/09/25 09:37 Dose Route Admin Location Dispensed Lot Number Expiration Date [employer] Tech 0.5 mL IM Right Deltoid 0.5 mL [id number] 04/26/26 07706-449-84 [employer] VIS Given Date VIS Provided VIS Publication Date 08/09/25 Single Vaccine 24 Eligibility Eligibility Date Funding Source Not [facility] Eligible 08/09/25 Private Results Reviewed Results Reviewed: Labs 08/04/25 worsening anemia, A1c 5.4, b12 and d now normal ldl 90 Coding Level of Care Code Est Pt Level 5 (78404) Complex EM visit Add On G2211 Diagnoses Primary hypertension I10 Hypertension type: primary hypertension Mixed hyperlipidemia E78.2 Hyperlipidemia type: mixed hyperlipidemia Prediabetes R73.03 Vitamin D deficiency E55.9 Other vitamin B12 deficiency anemia D51.8 Vitamin B12 deficiency anemia type: other B12 deficiency Influenza vaccination administered at current visit Z23 Left leg pain M79.605 Acute pain of left knee M25.562 Chronicity: acute Esophageal stricture K22.2 Obesity (BMI 30-39.9) E66.9 Anemia D64.9 Malignant melanoma of torso excluding breast C43.59 Melanoma location: torso excluding breast Assessment & Plan Assessment & Plan (1) HTN (hypertension): Code(s): I10 - Essential (primary) hypertension Category: Medical Qualifiers: Hypertension type: primary hypertension Qualified Code(s): I10 - Essential (primary) hypertension (2) HLD (hyperlipidemia): Code(s): E78.5 - Hyperlipidemia, unspecified Category: Medical Qualifiers: Hyperlipidemia type: mixed hyperlipidemia Qualified Code(s): E78.2 - Mixed hyperlipidemia (3) Prediabetes: Code(s): R73.03 - Prediabetes Category: Medical (4) Vitamin D deficiency: Comment: start daily MVI Code(s): E55.9 - Vitamin D deficiency, unspecified Category: Medical (5) B12 deficiency anemia: Code(s): D51.9 - Vitamin B12 deficiency anemia, unspecified Category: Medical Qualifiers: Vitamin B12 deficiency anemia type: other B12 deficiency Qualified Code(s): D51.8 - Other vitamin B12 deficiency anemias (6) Influenza vaccination administered at current visit: Code(s): Z23 - Encounter for immunization Category: Medical (7) Left leg pain: Code(s): M79.605 - Pain in left leg Category: Medical (8) Left knee pain: Code(s): M25.562 - Pain in left knee Category: Medical Qualifiers: Chronicity: acute Qualified Code(s): M25.562 - Pain in left knee (9) Esophageal stricture: Code(s): K22.2 - Esophageal obstruction Category: Medical (10) Obesity (BMI 30-39.9): Comment: with HTN and HLD Code(s): E66.9 - Obesity, unspecified Category: Medical (11) Anemia: Code(s): D64.9 - Anemia, unspecified Category: Medical (12) Melanoma: Comment: [facility] Code(s): C43.9 - Malignant melanoma of skin, unspecified Category: Medical Qualifiers: Melanoma location: torso excluding breast Qualified Code(s): C43.59 - Malignant melanoma of other part of trunk Plan . Orders: Orders US venous duplex LE LT Today M79.605 - Pain in left leg XR knee LT 4V Today M25.562 - Pain in left knee FL Modified Barium Swallow Today K22.2 - Esophageal obstruction Influenza 6103-2024 Immunization Today Z23 - Encounter for immunization Referrals Hematology & Oncology Referral D51.8 - Other vitamin B12 deficiency anemias, D64.9 - Anemia, unspecified Orthopedics Referral M25.562 - Pain in left knee Medications: Refilled valsartan 160 mg PO DAILY 90 tabs 0RF metformin ER 500 mg PO DAILY 90 tabs 0RF rosuvastatin 20 mg PO BEDTIME 90 tabs 0RF
[2025-08-09 08:53] VITALS: BP 122/72; PULSE 76; RESP 12; TEMP 36.2; O2SAT 97; BMI 40.5
== END 2025-08-09 09:41 | disposition home or self-care (01) ==
LOC: HO.HMCFM 08:35
PROVIDERS: PCP Nurse Practitioner Family; Visit Provider Nurse Practitioner Family
DX: I10 Essential (primary) hypertension (principal); C43.59 Malignant melanoma of other part of trunk; E66.9 Obesity, unspecified; Z68.41 Body mass index [BMI] 40.0-44.9, adult; E78.2 Mixed hyperlipidemia; R73.03 Prediabetes; E55.9 Vitamin D deficiency, unspecified; Z23 Encounter for immunization; M79.605 Pain in left leg; M25.562 Pain in left knee; K22.2 Esophageal obstruction; D64.9 Anemia, unspecified

== ENCOUNTER → 2025-08-09 08:34 | Outpatient (BNVA) | payer MEDICARE, SELFPAY | PROVIDERS: PCP Nurse Practitioner Family; Visit Provider Nurse Practitioner Family | DX: I10 Essential (primary) hypertension (principal); Z23 Encounter for immunization; E78.2 Mixed hyperlipidemia; R73.03 Prediabetes; E55.9 Vitamin D deficiency, unspecified; D51.8 Other vitamin B12 deficiency anemias; M79.605 Pain in left leg; M25.562 Pain in left knee; K22.2 Esophageal obstruction; E66.9 Obesity, unspecified; Z68.41 Body mass index [BMI] 40.0-44.9, adult; C43.59 Malignant melanoma of other part of trunk; Z79.84 Long term (current) use of oral hypoglycemic drugs; Z79.899 Other long term (current) drug therapy | CPT/HCPCS: 90471; 90656; 99212 ==

== ENCOUNTER 2025-08-10 07:38 | Outpatient (REF) | payer MEDICARE, SELFPAY ==
--- NOTE | ~2025-08-10 | US_ITS ---
EXAMINATION: US TRIPLEX LOWER EXTREMITY, LEFT CLINICAL INFORMATION: Area of swelling left medial calf. COMPARISON: None available. TECHNIQUE: Color-flow triplex imaging with spectral analysis and compression Doppler were performed on the left lower extremity. FINDINGS: Respiratory variation, normal compression and augmented flow are noted throughout the left lower extremity. The visualized common femoral vein, superficial femoral vein, profunda femoral vein, popliteal vein and midcalf peroneal and posterior tibial venous segments show no evidence of deep venous thrombosis. There is no Wells's cyst. US/US venous duplex LE LT IMPRESSION: No evidence of deep venous thrombosis involving the left lower extremity. Electronically signed by: Bandar Dyer MD 08/10/2025 08:37 AM EDT
== END 2025-08-10 07:39 | disposition home or self-care (01) ==
LOC: HO.US 07:38
PROVIDERS: PCP Nurse Practitioner Family; Visit Provider Nurse Practitioner Family
DX: M79.605 Pain in left leg (principal)
CPT/HCPCS: 93971

== ENCOUNTER → 2025-08-10 07:40 | Outpatient (BNV) | payer MEDICARE, SELFPAY | PROVIDERS: PCP Nurse Practitioner Family; Visit Provider Radiology Diagnostic Radiology | DX: R22.42 Localized swelling, mass and lump, left lower limb (principal) | CPT/HCPCS: 93971 ==

== ENCOUNTER 2025-08-18 10:06 | Outpatient (REF) | payer MEDICARE, SELFPAY ==
--- NOTE | ~2025-08-18 | FL_ITS ---
EXAMINATION: XR BARIUM SWALLOW CLINICAL INFORMATION: K22.2 - Esophageal obstruction COMPARISON: None available. TECHNIQUE: Fluoroscopy guidance provided to speech and hearing Department for modified barium swallow. The patient was administered thin liquid barium, barium mixed with applesauce and barium mixed with a cookie. FINDINGS: There is minimal penetration seen with liquid barium on initial swallow. This was not seen on later swallows of thin barium. No aspiration or penetration seen with solid media mixed with barium. No retention. There is degenerative spondylosis of the cervical spine. FLUOROSCOPY TIME: 36 seconds DOSE AREA PRODUCT: 550 uGy-m2 (microgray-meter squared) FL/FL Modified Barium Swallow IMPRESSION: Trace penetration seen with thin liquid barium seen on initial swallow only. Otherwise unremarkable exam. Electronically signed by: Lyn Clinton MD 08/18/2025 10:57 AM EDT
--- NOTE | ~2025-08-18 | XR_ITS ---
EXAMINATION: XR KNEE, LEFT CLINICAL INFORMATION: M25.562 - Pain in left knee COMPARISON: None available. TECHNIQUE: Four views of the left knee. FINDINGS: There is moderate narrowing of the medial compartment and mild narrowing of the lateral compartment. There are small tricompartmental marginal osteophytes. There is no joint effusion. There is no soft tissue calcification. XR/XR knee LT 4V IMPRESSION: Moderate osteoarthritis. Electronically signed by: Quinten Champagne MD 08/18/2025 10:37 AM EDT
--- NOTE | 2025-08-18 12:47 | MHC.SL.IMP ---
Date of Plan of Treatment: 08/18/25 Onset of Symptoms/Illness: 08/18/15 Date Treatment Started: 08/18/25 Admitting Diagnosis: GERD Primary Speech & Language Diagnosis: R13.10 Dysphagia Reason for Today's Visit: 21835 Modified Barium Swallow Study Pre-evaluation Dietary Consistencies: Regular Pre-evaluation Liquid Consistency: Thin Pre-evaluation Medication Administration: Whole with Liquid Medical History: Modified Barium Swallow Study Fluoroscopic Evaluation of Swallowing Function CPT Code 40123 Evaluation Year: 2024 Reason for Study: Patient reporting difficulty swallowing. Referring Physician: Brina MUSE Evaluating Clinician: Danyelle Choi MA, CCC-EDUCATIONAL MANAGER Study Number: 1 Patient Name: Yusuf Wolfe Status: Outpatient, Ambulatory Age: 75 Sex: Male Medical History Medical History (Updated 08/09/25 @ 16:07 by ALMAZ To) High cholesterol HTN (hypertension) No pertinent family history Sinusitis Surgical History (Updated 02/10/25 @ 13:23 by ALMAZ To) History of colonoscopy (~2023) No pertinent past surgical history Current (pre-evaluation) Intake/Diet: Route: PO Diet Grade: Regular Liquid Consistencies: Thin Pre-Study Functional Oral Intake Scale (FOIS): 7- Total oral intake with no restrictions Pain: None reported at time of study SUBJECTIVE: Patient is a 75 year old male referred for a modified barium swallow study (MBSS) by his primary care provider, Brina MUSE, from [facility] [place] [facility]. Patient reported constant throat clearing and choking/gagging. Today he elaborated on these complaints, stating that he feels a foreign body sensation in his throat which is ongoing, even when he is not eating/drinking. When he eats something rough in texture though it exacerbates this sensation. Patient reported globus sensation after eating at the mid-chest level. He has also been experiencing post-nasal drip, notes history of deviated nasal septum with nasal deviation repair in 2019, GERD, hx barium swallow years ago w/ balloon dilation of the esophagus. Oral Motor Exam Facial Symmetry: Symmetrical Mouth Occlusion: Normal Oral-Facial Teeth Characteristics: Intact/Normal Oral-Facial Smile (Lips) Description: Normal Oral-Facial Puff Cheeks Description: Normal Tongue Size: Normal Tongue Excursion Description: Normal Tongue Range of Movement Description: Normal Tongue Speed of Movement Description: Normal Tongue Strength of Movement (against opposing pressure): Normal Tongue Movement Characteristics: Normal/Absent Is patient able to manage secretions?: Yes Is patient able to produce volitional cough?: Yes Food and Liquid Trials: Oral Impairment: Lip Closure: Did not test Oral Impairment: Tongue Control During Bolus Hold: 0=Cohesive bolus between tongue to palatal seal Oral Impairment: Bolus Preparation/Mastication: 0=Timely and efficient chewing and mashing Oral Impairment: Bolus Transport/Lingual Motion: 1= Delayed initiation of tongue motion Oral Impairment: Oral Residue: 1=Trace residue lining oral structures Oral Impairment:Initiation of Pharyngeal Swallow: 1=Bolus head in valleculae Pharyngeal Impairment: Soft Palate Elevation: 0=No bolus between soft palate (SP)/pharyngeal wall (PW) Pharyngeal Impairment: Laryngeal Elevation: 1=Partial thyroid cartilage/arytenoids to epiglottic petiole movement Pharyngeal Impairment: Anterior Hyoid Excursion: 1=Partial anterior movement Pharyngeal Impairment: Epiglottic Movement: 1=Partial inversion Pharyngeal Impairment: Laryngeal Vestibular Closure:: 1=Incomplete: narrow column air/contrast in laryngeal vestibule Pharyngeal Impairment: Pharyngeal Stripping Wave: 0=Present: complete Pharyngeal Impairment: Pharyngeal Contraction: Did not test Pharyngeal Impairment: Pharyngoesophageal Segment Openin=Complete distension and complete duration: no obstruction of flow Pharyngeal Impairment: Tongue Base (TB) Retraction: 1=Trace column of contrast/air between TB and posterior PW Pharyngeal Impairment: Pharyngeal Residue: 0=Complete pharyngeal clearance Pharyngeal Impairment: Esophageal Clearance Upright Position: Did not test Impressions and Recommendations OBJECTIVE: Time-out: performed at 10:45 Evaluation Start: 10:30; Stop: 10:35 Patient Positioning: Standing Viewing Planes: LATERAL ONLY Contrast: MBSImP? Standardized Protocol using commercially prepared, standardized Barium viscosities, including: Varibar? THIN LIQUID (40% w/v, <15 cps) , Varibar? PUDDING (40% w/v, <0670-2878 cps) , 1/2 Shortbread Cookie (1 x1 x.25 ) MBSImP ID: [id number] MBSImP Results: Lip closure for intraoral bolus containment could not be assessed due to logistical reasons not related to physiologic impairment. Tongue control during bolus hold maintained a cohesive bolus held between tongue to palate seal. Bolus preparation and mastication resulted in timely and efficient chewing and mashing. Bolus transport/lingual motion demonstrated delayed initiation of tongue motion. Oral residue was a trace, lining oral structures. Initiation of the pharyngeal swallow occurred when the bolus head was in the valleculae. Soft palate elevation resulted in no bolus between the soft palate and the pharyngeal wall. Laryngeal elevation was decreased, with partial superior movement of the thyroid cartilage/partial approximation of the arytenoids to the epiglottic petiole. Anterior hyoid excursion demonstrated partial anterior movement. Epiglottic movement resulted in partial inversion. Laryngeal vestibular closure was incomplete, with a narrow column of air/contrast noted within the laryngeal vestibule at the height of the swallow. Pharyngeal stripping wave was present and complete. Pharyngeal contraction could not be determined due to logistical reasons not related to physiologic impairment. Pharyngoesophageal segment opening was completely distended for complete duration with no obstruction of bolus flow. Tongue base retraction allowed a trace column of contrast or air between the retracted tongue base and the posterior pharyngeal wall. Pharyngeal residue was not present. There was complete pharyngeal clearance. Esophageal clearance in the upright position could not be assessed due to logistical reasons not related to physiologic impairment. Oral Impairment Score: 2 (absence of score, component 1) Pharyngeal Impairment Score: 4 (absence of score, component 13) Esophageal Impairment Score: --- (absence of score, component 17) Laryngeal Penetration and Aspiration: Neither penetration nor aspiration was observed in today's study with Cookie, Pudding-thick. Penetration was observed in today's study. Thin Contrast entered the airway, remained above the vocal folds, and was ejected from the airway. ASSESSMENT: This exam was performed by the radiologist and the speech pathologist. Patient was standing for lateral view and fed himself independently. Patient trialed the following consistencies: -Thin (via individual cup sips and rapid cup sips) -Puree (mixture applesauce w/ barium pudding) -Regular (shortbread cookies coated w/ barium pudding) Note good tongue control with no premature posterior spillage from the oral cavity. Mastication was timely and efficient, with overall good oral recollection. Trace residue on the posterior tongue cleared on secondary swallows. Bolus transport was delayed, with brisk lingual movement. Pharyngeal swallow trigger initiated as the bolus head reached the valleculae. No evidence of nasopharyngeal reflux. Partial laryngeal elevation with partial epiglottic inversion and incomplete laryngeal vestibular closure. There was a singular episode of flash penetration on the initial swallow. A trace amount of thin liquid entered the airway momentarily and spontaneously cleared. This was not repeated on subsequent trials of thin liquid. No evidence of aspiration during this exam. Note complete pharyngeal clearance. Liquid Intake Recommendation: Thin Liquid Intake Strategies: Dietary Recommendations: Regular Medication Administration: Whole with Liquid Please contact the pharmacy regarding appropriate crushable or liquid drug formulations that are available whenever modified delivery is recommended. Compensatory Strategies Recommended: Sitting Upright (90 deg), Small Bites and Sips, Rate of Ingestion Change Recommendation for Speech Therapy: NA:Typical Evaluation Text Comment: Intake Recommendations: Route: PO Diet Grade: Regular Liquid Consistencies: Thin Post-Study Functional Oral Intake Scale (FOIS): 7- Total oral intake with no restrictions Singular episode of flash penetration on thin liquid. No evidence of aspiration during this exam. Trace residue on the posterior tongue cleared with secondary swallow. Complete pharyngeal clearance seen. Suggested Referrals: The patient might benefit from a referral to: Gastroenterology Indication for Referral: Patient reports globus sensation at the mid-chest level, with MBSS showing complete pharyngeal clearance. Note hx GERD, previous barium swallow ?years ago? and balloon dilation Otolaryngology Indication for Referral: Patient reporting chronic throat clearing/cough. Note hx nasal deviation repair in 2019. Therapy Recommendations: Speech Therapy is not indicated at this time, as patient?s swallow is deemed functional in the oral and pharyngeal phases. Patient may benefit from consultations with ENT and GI for complaints of globus sensation, increased phlegm production/post-nasal drip, and chronic cough/throat clear. Clinician - Supplemental, Miscellaneous Communication: It is important to note MBSS objective studies are snapshots in time and Patient function might vary with factors such as time of day or concomitant medical conditions. For this reason, the final treatment plan for this patient should rest with their medical care team. Additional recommendations should be considered with the totality of the Patient in mind. Thank for the opportunity to participate in the care of this patient. If you have any questions about the content of this report, please contact the [facility] at [facility]. Education: Education regarding findings from today's study and plans for therapy were provided to Patient only through Verbal Instruction. Understanding was expressed by the Patient only. Transit Police Officer Clinician/Clinical Fellow: No Supervisory Statement: N/A Speech Language Pathologist: Danyelle Choi M.A., [facility]-EDUCATIONAL MANAGER
== END 2025-08-18 10:07 | disposition home or self-care (01) ==
LOC: HO.XRAY 10:06
PROVIDERS: Visit Provider Nurse Practitioner Family
DX: K22.2 Esophageal obstruction (principal); R13.10 Dysphagia, unspecified; M25.562 Pain in left knee
CPT/HCPCS: 73564; 74230; 92611

== ENCOUNTER → 2025-08-18 10:30 | Outpatient (BNV) | payer MEDICARE, SELFPAY | PROVIDERS: Visit Provider Radiology Diagnostic Radiology | DX: R13.10 Dysphagia, unspecified (principal); M17.12 Unilateral primary osteoarthritis, left knee | CPT/HCPCS: 73564; 74230 ==

== ENCOUNTER 2025-09-01 15:21 | Outpatient (AMB) | payer MEDICARE, SELFPAY ==
--- NOTE | 2025-09-01 15:28 | A.OFFPC_ITS ---
Intake Visit Reasons: Review blood work Intake Note: Telehealth to review labs [employer] Required: No Allergies No Known Allergies Allergy (Verified 09/01/25 15:29) Tobacco use date assessed: 09/01/25 Fall risk assessment: No Falls in past year Last assessed Fall Risk: 09/01/25 Dental Screening Dental Screen Date: 09/01/25 Did you have a dental visit in the last 12 months?: Yes Did you have a dental problem in the last 6 months where you did not have access to dental care?: No Was dental information given to patient?: Patient has dentist HPI HPI Comments History of Present Illness Details 75 y/o M with obesity, deviated nasal se ptum, elevated LFT, GERD, HLD, HTN, melanoma, prediabetes, family hx colon ca (Mom), leukocytosis, macrocytosis, sebhorreic dermatitis of scalp, PVC and PAC noted on EKGs, Vit d def SurgHx: s/p cataract surgery 2020, nasal deviation repair 2019 FHx: Mom colon ca, Bro oropharynx ca & VT, MGF stroke 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 Colon: 2023 @ [facility], polyps repeat in 3 years Vaccines: Flu 08/09/25, Tdap 12/2024, Shingles UTD, PCV to be done at pharmacy AAA screen: NA EKG: PVC and PAC 1st degree heart block [place] of Care: GI [facility] History of Present Illness The patient is a 75-year-old male presenting for a review of lab results. Macrocytic Anemia: - The patient has worsening anemia, with blood counts decreasing between December and July. - This is despite B12 supplementation, w [facility] has normalized his B12 levels.. - The patient has a history of melanoma. - He has a scheduled appointment with a drinking water technician on October 25. - Admits anxiety about waiting this long Prediabetes: - The patient has prediabetes, with a re cent lab value of 5.4, which is an improvement. - He and his plan to adopt a Medite rranean diet to manage his condition and avoid progression to diabetes. Knee Arthritis, L - The patient's knee pain is feeling bet ter. - A previous workup showed arthritis wit h no evidence of blood clots. - He manages the symptoms with exercise at the gym. - The patient does not wish to have any further intervention, such as an injection, and has an upcoming orthopedic appointment on September 08. - He asked for me to cancel this for him . Review of Systems - General: Denies any other concerns bes ides the abnormal blood work. - Musculoskeletal: Reports resolved knee pain. - Gastrointestinal: Reports prior dyspha kuldip, but a swallow study was negative, and the issue is resolved. Physical Exam Limited Sitting on couch with Alert and oriented SPeaking in full sentences Skin PWD Results Results: Labs 08/04/25 worsening anemia, A1c 5.4, b12 and d now normal ldl 90 - Tests and Diagnostics: - Swallow study: Negative. - Knee X-ray & DVT R/o US: Showed arthri tis; no blood clots were noted. Assessment and Plan 1. Anemia - The patient has worsening anemia despi te normalized B12 - Given his history of melanoma, it is p rudent to rule out an underlying malignancy. - Plan includes a referral to Hematology /Oncology for evaluation. - An attempt will be made to expedite hi s current appointment scheduled for October 25, and the patient will be notified of any changes via the patient portal. 2. Prediabetes - The patient's glycemic control has imp roved, as indicated by his recent lab result of 5.4. - He will continue lifestyle modificatio ns and plans to start a Mediterranean diet. 3. Knee Arthritis, L - The patient's knee pain has improved w ith exercise, and he declines further orthopedic intervention. - A message was sent to cancel his upcom ing orthopedic appointment on September 08. 4. Follow-up - The patient will keep his scheduled fo llow-up appointment on October 04. Patient was given time to ask questions. All questions were answered to their satisfaction. Telehealth Attestation This visit was conducted via a telehealth audio call, and this note is believed to be an accurate representation of the encounter. The patient has been explained that this is an interactive (audio/video) telehealth encounter and what that consists of. The patient understands and wishes to proceed. [employer] platform was used. Total time spent caring for the patient today was 21 minutes. This includes time spent before the visit reviewing the chart, time spent during the visit, and time spent after the visit on documentation, reviewing laboratory results, diagnostic imaging, medications, performing a medically necessary evaluation, counseling on diagnoses, care coordination, ordering appropriate tests, ordering appropriate medications, review of tests performed by other providers, reporting test results with the patient, communication with other healthcare providers. [facility] Medical History (Updated 09/01/25 @ 16:17 by FRANCESCA [facility] High cholesterol HTN (hypertension) No pertinent family history Sinusitis Surgical History (Updated 02/10/25 @ 13:23 by FRANCESCA [facility]) History of colonoscopy (~2023) No pertinent past surgical history Social History (Updated 01/19/25 @ 09:18 by Taz Truong MA) Household Members: Spouse Both parents involved: No Caregiver staying overnight: No Housing: Condominium Are you a primary acute care physical therapist to a significant other at home: Yes Do you presently have visiting nurse or other home services: No 75 years or older and lives alone: No Alcohol intake: current Alcohol intake frequency: a few times a week Patient Tobacco Use Status: Former Tobacco user Tobacco use type: Cigarette Cigarette Packs Per Day: 2 Years Smoked: 10 e-Cigarette/Vaping Use: Never Used Second Hand Smoke Exposure: No service: No Current occupational status: retired Cognitive needs: No Hearing needs: No Vision needs: No Questionnaire Thrive Questionnaire Date Thrive assessed: 01/19/25 I am a: Patient What is your living situation today?: I have a steady place to live Within the past 12 months, did the food you bought not last and you didn't have the money to get more?: I choose not to answer this question Within the past 12 months, did you worry whether your food would run out before you got money to buy more?: I choose not to answer this question Do you have trouble paying for medicines?: No Do you have trouble getting transportation to medical appointments?: No Do you have trouble paying your heating and electricity bill?: No Do you have trouble taking care of your child, family member or friend?: No Do you have trouble with day-to-day activities such as bathing, preparing meals, shopping, managing finances, etc.?: No Are you currently unemployed and looking for a job?: No Are you interested in more education?: No Please select the resources that you would like help with: None Currently or been in a relationship where the following occur: No concerns reported THRIVE Score: 0 SHANAE-7 AMB Questionnaire SHANAE-7 Date SHANAE - 7 assessed: 01/19/25 Source: Developed by Drs. Deangelo Serna, Adenike Ashby, Wali Rascon and colleagues, with an educational linn from [employer]. Physical exam (Primary Care) Tobacco/Smoking Status: Tobacco use Status Tobacco use date assessed 09/01/25 09/01/25 15:30 Patient Tobacco Use Status Former Tobacco user 09/01/25 15:30 Tobacco use type Cigarette 09/01/25 15:30 e-Cigarette/Vaping Use Never Used 09/01/25 15:30 Thrive Assessment: Date of Thrive Assessment Date Thrive assessed 01/19/25 09/01/25 15:30 Currently or been in a relationship where the following occur: No concerns reported Telehealth Telehealth Telehealth Platform: [facility] Location of provider rendering services: practice address Location of patient: address on file Patient Identification confirmed using: Name, : Yes Telehealth method: video Patient verbally consented to treatment: Yes Patient verbally consented to billing insurance company: Yes Patient informed of any privacy concerns related to visit: Yes Minutes spent on Phone/Video with Pt.: 12 Results Reviewed Results Reviewed: Labs 08/04/25 worsening anemia, A1c 5.4, b12 and d now normal ldl 90 Coding Level of Care Code Tele Est Pt Level 3 (44000) Complex EM visit Add On G2211 Diagnoses Encounter to discuss test results Z71.2 Prediabetes R73.03 Anemia, unspecified type D64.9 Anemia type: unspecified type Malignant melanoma of torso excluding breast C43.59 Melanoma location: torso excluding breast Acute pain of left knee M25.562 Chronicity: acute Assessment & Plan Assessment & Plan (1) Encounter to discuss test results: Code(s): Z71.2 - Person consulting for explanation of examination or test findings (2) Prediabetes: Code(s): R73.03 - Prediabetes Category: Medical (3) Anemia: Code(s): D64.9 - Anemia, unspecified Category: Medical Qualifiers: Anemia type: unspecified type Qualified Code(s): D64.9 - Anemia, unspecified (4) Melanoma: Comment: [facility] Code(s): C43.9 - Malignant melanoma of skin, unspecified Category: Medical Qualifiers: Melanoma location: torso excluding breast Qualified Code(s): C43.59 - Malignant melanoma of other part of trunk (5) Left knee pain: Code(s): M25.562 - Pain in left knee Category: Medical Qualifiers: Chronicity: acute Qualified Code(s): M25.562 - Pain in left knee Plan .
== END 2025-09-01 16:17 | disposition home or self-care (01) ==
LOC: HO.HMCFM 15:22
PROVIDERS: PCP Nurse Practitioner Family; Visit Provider Nurse Practitioner Family
DX: R73.03 Prediabetes (principal); Z85.820 Personal history of malignant melanoma of skin; D64.9 Anemia, unspecified; Z71.2 Person consulting for explanation of examination or test findings

== ENCOUNTER → 2025-10-08 10:46 | Outpatient (BNV) | payer MEDICARE, SELFPAY | PROVIDERS: Referring Provider Nurse Practitioner Family; Visit Provider Internal Medicine Medical Oncology | DX: D53.9 Nutritional anemia, unspecified (principal) | CPT/HCPCS: 99204 ==